=== PATIENT | female | born 1940 | race Caucasian/White ===

== ENCOUNTER 2016-09-13 12:34 | Emergency (ER) | payer MEDICARE, OTHER ==
[2016-09-13 12:39] VITALS: BP 137/69; PULSE 88; RESP 16; TEMP 98.4; O2SAT 97
[2016-09-13] MEDS ORDERED: Sodium Chloride 0.9% 1,000 ML IV STA (13:01)
--- NOTE | 2016-09-13 13:06 | ED PDOC ---
Syncope/Near Syncope/Dizziness Time Seen by Provider: 09/13/16 12:43 Chief Complaint (Nursing): Dizziness/Lightheaded Chief Complaint (Provider): diziness History Per: Patient History/Exam Limitations: no limitations Onset/Duration Of Symptoms: Days (x 1) Additional Complaint(s): Heather Moody is a 76 year old female, with a previous medical history of hypertension and diabetes, who presents to the ED with complaints of dizziness associated with nausea and vomiting ongoing for 1 day. Patient denies any chest pain, palpitation, loss of consciousness or abdominal pain. PMD: none provided Past Medical History Reviewed: Historical Data, Nursing Documentation, Vital Signs Vital Signs: Last Vital Signs Temp 98.4 F 09/13/16 12:35 Pulse 88 09/13/16 12:35 Resp 16 09/13/16 12:35 BP 137/69 09/13/16 12:35 Pulse Ox 97 09/13/16 12:35 - Medical History PMH: CAD, Diabetes, HTN - Family History Family History: States: Unknown Family Hx - Immunization History Hx Tetanus Toxoid Vaccination: No Hx Influenza Vaccination: No Hx Pneumococcal Vaccination: No - Home Medications Home Medications: Ambulatory Orders Medication Instructions Recorded Clindamycin [Cleocin] 300 mg PO QID #40 cap 05/21/15 Pseudoephedrine HCl [Sudafed 120 mg PO BID #14 tablet.er 05/21/15 12-Hour] Meclizine [Meclizine*] 25 mg PO Q8 #15 tab 09/13/16 Ondansetron [Zofran] 4 mg PO Q8H #10 tab 09/13/16 - Allergies Allergies/Adverse Reactions: Allergies Allergy/AdvReac Type Severity Reaction Status Date / Time Penicillins Allergy RASH Verified 05/21/15 11:48 Review of Systems ROS Statement: Except As Marked, All Systems Reviewed And Found Negative Cardiovascular: Negative for: Chest Pain, Palpitations Respiratory: Negative for: Shortness of Breath Gastrointestinal: Positive for: Nausea, Vomiting. Negative for: Abdominal Pain , Diarrhea Neurological: Positive for: Dizziness Physical Exam - Reviewed Nursing Documentation Reviewed: Yes Vital Signs Reviewed: Yes - Physical Exam Appears: Positive for: Well, Non-toxic, No Acute Distress Head Exam: Positive for: ATRAUMATIC, NORMAL INSPECTION, NORMOCEPHALIC Skin: Positive for: Normal Color, Warm, DRY Eye Exam: Positive for: EOMI, Normal appearance, PERRL ENT: Positive for: Normal ENT Inspection Neck: Positive for: Normal, Painless ROM Cardiovascular/Chest: Positive for: Regular Rate, Rhythm Respiratory: Positive for: CNT, Normal Breath Sounds Gastrointestinal/Abdominal: Positive for: Normal Exam, Bowel Sounds, Soft Back: Positive for: Normal Inspection Extremity: Positive for: Normal ROM Neurologic/Psych: Positive for: Alert, waistline joiner overlock II-XII (intact), Oriented. Negative for: Motor/Sensory Deficits - Laboratory Results Result Diagrams: 09/13/16 13:40 09/13/16 13:40 - ECG O2 Sat by Pulse Oximetry: 97 (RA) Pulse Ox Interpretation: Normal Medical Decision Making Medical Decision Making: Initial Plan: * EKG * labs * Antivert 25 mg PO * zofran 4 mg IV * IV NS 1,000 ml at 100 ml/hr * reevaluation Scribe Attestation: Documented by Karen Ryder, acting as a scribe for Hola Green MD. Provider Scribe Attestation: All medical record entries made by the Scribe were at my direction and personally dictated by me. I have reviewed the chart and agree that the record accurately reflects my personal performance of the history, physical exam, medical decision making, and the department course for this patient. I have also personally directed, reviewed, and agree with the discharge instructions and disposition. Disposition - Clinical Impression Clinical Impression: Vertigo - Patient ED Disposition Is Patient to be Admitted: No Counseled Patient/Family Regarding: Studies Performed, Diagnosis, Need For Followup, Rx Given - Disposition Referrals: [facility] [Outside] Disposition: Routine/Home Disposition Time: 14:47 Condition: FAIR Prescriptions: Meclizine [Meclizine*] 25 mg PO Q8 #15 tab Ondansetron [Zofran] 4 mg PO Q8H #10 tab Instructions: Vertigo (ED) Forms: [facility] (Lebanese) Print Language: CYPRIOT
[2016-09-13 13:49] LABS: BASO % 0.4 % (0.0-2.0); EOS # 0.1 K/uL (0.0-0.7); EOS % 0.4 % (0.0-4.0); HEMATOCRIT 39.7 % (34.0-47.0); LYMPH # 2.1 K/uL (1.0-4.3); MEAN CELL VOLUME 82.7 fl (81.0-99.0); MEAN CORPUSCULAR HEMOGLOBIN 25.8 pg (27.0-31.0); MEAN CORPUSCULAR HGB CONC 31.2 g/dL (33.0-37.0); MEAN PLATELET VOLUME 8.8 fl (7.2-11.7); MONO # 0.7 K/uL (0.0-0.8); MONO % 5.9 % (0.0-10.0); NEUT # 9.4 K/uL (1.8-7.0); NEUT % 76.3 % (50.0-75.0); NRBC % 0.3 % (0.0-0.0); RED CELL DISTRIBUTION WIDTH 14.6 % (11.5-14.5); WHITE BLOOD COUNT 12.3 K/uL (4.8-10.8)
[2016-09-13 13:57] LABS: ALB/GLOB RATIO 1.3 (1.0-2.1); ALKALINE PHOSPHATASE 68 U/L (38-126); ALT/SGPT 42 U/L (9-52); AST/SGOT 30 U/L (14-36); BILIRUBIN,TOTAL 1.2 mg/dl (0.2-1.3); BLOOD UREA NITROGEN 26 mg/dl (7-17); CALCIUM 9.7 mg/dL (8.4-10.2); CARBON DIOXIDE 26 mmol/L (22-30); CHLORIDE 104 mmol/L (98-107); GFR AFRICAN-AMERICAN > 60; GLUCOSE,RANDOM 209 mg/dL (65-105); POTASSIUM 4.8 MMOL/L (3.6-5.0); SODIUM 140 mmol/l (132-148); TOTAL PROTEIN 7.8 G/DL (6.3-8.2)
--- NOTE | 2016-09-14 14:56 | CARD ---
APPROVED REPORT EKG Measurement Heart [id number] ID [id number] <Conclusion> Normal sinus rhythm Normal ECG
== END 2016-09-13 15:07 | disposition home or self-care (01) ==
LOC: H.ER 12:34
DX: R42 Dizziness and giddiness (principal); E11.9 Type 2 diabetes mellitus without complications; I10 Essential (primary) hypertension; I25.10 Atherosclerotic heart disease of native coronary artery without angina pectoris; Z88.0 Allergy status to penicillin
CPT/HCPCS: 80053; 82948; 85025; 93005; 96374; 99284; J2405; J7040

== ENCOUNTER 2016-12-05 01:05 | Emergency (ER) | payer MEDICARE, OTHER ==
[2016-12-05 01:15] VITALS: RESP 16; TEMP 98
--- NOTE | 2016-12-05 01:29 | ED PDOC ---
HPI: Back Time Seen by Provider: 12/05/16 01:13 Chief Complaint (Nursing): Back Pain Chief Complaint (Provider): Back pain History Per: Patient Additional Complaint(s): Pt brought to ER via EMS for eval of neck pain., back pain, body aches and dizziness x 3 days Past Medical History Vital Signs: Last Vital Signs Temp 98.0 F 12/05/16 01:13 Pulse 82 12/05/16 01:13 Resp 16 12/05/16 01:13 BP 144/74 12/05/16 01:13 Pulse Ox 97 12/05/16 01:13 - Medical History PMH: CAD, Diabetes, HTN - Family History Family History: States: Unknown Family Hx - Immunization History Hx Tetanus Toxoid Vaccination: No Hx Influenza Vaccination: No Hx Pneumococcal Vaccination: No - Home Medications Home Medications: Ambulatory Orders Medication Instructions Recorded Clindamycin [Cleocin] 300 mg PO QID #40 cap 05/21/15 Pseudoephedrine HCl [Sudafed 120 mg PO BID #14 tablet.er 05/21/15 12-Hour] Meclizine [Meclizine*] 25 mg PO Q8 #15 tab 09/13/16 Ondansetron [Zofran] 4 mg PO Q8H #10 tab 09/13/16 - Allergies Allergies/Adverse Reactions: Allergies Allergy/AdvReac Type Severity Reaction Status Date / Time Penicillins Allergy RASH Verified 05/21/15 11:48 - ECG O2 Sat by Pulse Oximetry: 97 Disposition - Disposition
[2016-12-05 02:22] LABS: ALB/GLOB RATIO 1.3 (1.0-2.1); ALKALINE PHOSPHATASE 70 U/L (38-126); ALT/SGPT 62 U/L (9-52); AST/SGOT 45 U/L (14-36); BILIRUBIN,TOTAL 0.6 mg/dl (0.2-1.3); BLOOD UREA NITROGEN 20 mg/dl (7-17); CALCIUM 9.3 mg/dL (8.4-10.2); CARBON DIOXIDE 25 mmol/L (22-30); CHLORIDE 104 mmol/L (98-107); GFR AFRICAN-AMERICAN > 60; GLUCOSE,RANDOM 113 mg/dL (65-105); POTASSIUM 4.3 MMOL/L (3.6-5.0); SODIUM 140 mmol/l (132-148); TOTAL PROTEIN 7.3 G/DL (6.3-8.2)
--- NOTE | 2016-12-05 02:33 | CT ---
EXAM: CT Head Without Intravenous Contrast CLINICAL HISTORY: 76 years old, female; Pain and signs and symptoms; Dizziness; Headache; Headache not specified; Additional info: Headache, dizzy TECHNIQUE: Axial computed tomography images of the head/brain without intravenous contrast. All CT scans at this facility use one or more dose reduction techniques, viz.: automated exposure control; ma/kV adjustment per patient size (including targeted exams where dose is matched to indication; i.e. head); or iterative reconstruction technique. Coronal and sagittal reformatted images were created and reviewed. COMPARISON: CT - HEAD W/O CONTRAST 2015-05-21 12:08 FINDINGS: Brain: No acute intracranial hemorrhage. Age-appropriate periventricular white matter disease. No edema. Ventricles: Age-appropriate ventriculomegaly. Bones: No acute displaced fracture. Sinuses: Unremarkable as visualized. No acute sinusitis. Mastoid air cells: Unremarkable as visualized. No mastoid effusion. IMPRESSION: No acute intracranial hemorrhage, or suspicious mass effect.
[2016-12-05 02:51] LABS: RBC URINE 1 /hpf (0-3); URINE BACTERIA RARE (<OCC); URINE BILIRUBIN NEGATIVE (NEGATIVE); URINE BLOOD NEGATIVE (NEGATIVE); URINE COLOR STRAW (YELLOW); URINE GLUCOSE (UA) NEG (Normal); URINE KETONE NEGATIVE (NEGATIVE); URINE LEUKOCYTE ESTERASE NEG Leu/uL (Negative); URINE PROTEIN NEGATIVE (NEGATIVE); URINE UROBILINOGEN 0.2-1.0 mg/dL (0.2-1.0); WBC URINE 2 /hpf (0-5)
[2016-12-05 02:52] LABS: THYROID STIMULATING HORMONE 6.91 mIU/ML (0.46-4.68)
[2016-12-05 04:46] VITALS: BP 125/80; PULSE 75; O2SAT 98
[2016-12-05 08:06] LABS: BASO # 0.1 K/uL (0.0-0.2); BASO % 1.1 % (0.0-2.0); EOS # 0.1 K/uL (0.0-0.7); EOS % 1.5 % (0.0-4.0); HEMATOCRIT 36.1 % (34.0-47.0); LYMPH # 2.7 K/uL (1.0-4.3); LYMPH % 27.2 % (20.0-40.0); MEAN CELL VOLUME 81.1 fl (81.0-99.0); MEAN PLATELET VOLUME 8.5 fl (7.2-11.7); MONO # 0.7 K/uL (0.0-0.8); MONO % 6.6 % (0.0-10.0); NEUT # 6.4 K/uL (1.8-7.0); NEUT % 63.6 % (50.0-75.0); RED CELL DISTRIBUTION WIDTH 15.1 % (11.5-14.5); WHITE BLOOD COUNT 10.1 K/uL (4.8-10.8)
--- NOTE | 2016-12-05 12:21 | CARD ---
APPROVED REPORT EKG Measurement Heart [id number] <Conclusion> Normal sinus rhythm Nonspecific T wave abnormality Abnormal ECG
--- NOTE | 2016-12-05 12:59 | RAD ---
HISTORY: med screening COMPARISON: No prior. FINDINGS: LUNGS: No active pulmonary disease. PLEURA: No significant pleural effusion identified, no pneumothorax apparent. CARDIOVASCULAR: Normal. OSSEOUS STRUCTURES: No significant abnormalities. VISUALIZED UPPER ABDOMEN: Normal. OTHER FINDINGS: None. IMPRESSION: No active disease.
== END 2016-12-05 05:06 | disposition home or self-care (01) ==
LOC: H.ER 01:05
DX: T78.40XA Allergy, unspecified, initial encounter (principal); R42 Dizziness and giddiness
CPT/HCPCS: 70450; 71010; 80053; 81003; 82948; 84443; 84484; 85025; 93005; 96374; 99282; J1885

== ENCOUNTER 2017-04-06 08:29 | Emergency (ER) | payer MEDICARE, OTHER ==
[2017-04-06 08:36] VITALS: RESP 20; TEMP 98.3; O2SAT 96
--- NOTE | 2017-04-06 09:28 | ED PDOC ---
HPI: Eye Injury/Pain Chief Complaint (Provider): Bilateral Eye burning History Per: Patient History/Exam Limitations: no limitations Onset/Duration Of Symptoms: Other (4 months) Current Symptoms Are (Timing): Still Present Quality: Burning Associated Symptoms: Itching, Discharge From Eye Additional Complaint(s): 76 yo ,f, PMHx/o DM, HTN, B/L cataracts surgery(last 6 months ago) , Thyroid CA presents c/o b/l eyes burning "sand sensation" started 4 months ago, onset over right eye first and 1 week later left eye, associated with itching, clear eye discharge, mild photophobia and occs pain. She denies today blurry vision, vision loss, eye pain, eye trauma, headache, dizziness, weakness, numbness, chest pain , SOB,palpitation, fever, n,v,d, abd pain, polyuria, polydipsia, polyphagia. She reports was seen by her Ophtalmology 4 months ago and she was prescribed Lubricant eye drops, that she has been using w/o improvement of symptoms. PMD: Jj Jules <Josey Ji - Last Filed: 04/06/17 10:36> <Sriram Rivas - Last Filed: 04/09/17 23:40> Time Seen by Provider: 04/06/17 08:59 Supervising Attending Note - Supervising Attending Note The Documented history was done by the: Physician Hand I Thermal Cutter The documented physical exam was done by the: Physician Hand I Thermal Cutter The documented procedures were done by the: Physician Hand I Thermal Cutter - Attestation: I have personally seen and examined this patient.: Yes I have fully participated in the care of the patient.: Yes I have reviewed all pertinent clinical information, including history, physical exam and plan: Yes - Notes: Notes:: eye itching <Sriram Rivas - Last Filed: 04/09/17 23:40> Past Medical History Vital Signs: Last Vital Signs Temp 98.3 F 04/06/17 08:35 Pulse 91 H 04/06/17 08:35 Resp 20 04/06/17 08:35 BP 171/60 H 04/06/17 08:35 Pulse Ox 96 04/06/17 08:35 - Medical History PMH: CAD, Diabetes, HTN - Family History Family History: States: Unknown Family Hx - Immunization History Hx Tetanus Toxoid Vaccination: No Hx Influenza Vaccination: No Hx Pneumococcal Vaccination: No <Josey Ji - Last Filed: 04/06/17 10:36> Vital Signs: Last Vital Signs Temp 98.3 F 04/06/17 08:35 Pulse 88 04/06/17 12:15 Resp 20 04/06/17 08:35 BP 150/68 04/06/17 12:15 Pulse Ox 96 04/06/17 10:36 <Sriram Rivas - Last Filed: 04/09/17 23:40> - Home Medications Home Medications: Ambulatory Orders Medication Instructions Recorded Meclizine [Meclizine*] 25 mg PO Q6 #30 tab 12/05/16 Polymyxin/Trimethoprim Sulfate 2 drop BOTHEYES Q6H 7 Days bottle 04/06/17 [Polytrim Ophth Soln] - Allergies Allergies/Adverse Reactions: Allergies Allergy/AdvReac Type Severity Reaction Status Date / Time Penicillins Allergy RASH Verified 05/21/15 11:48 Review of Systems Eyes: Positive for: Conjunctivae Inflammation. Negative for: Pain, Vision Change ENT: Negative for: Ear Pain Cardiovascular: Negative for: Chest Pain Respiratory: Negative for: Cough Gastrointestinal: Negative for: Nausea, Vomiting, Abdominal Pain <Josey Ji - Last Filed: 04/06/17 10:36> Physical Exam - Physical Exam Appears: Positive for: No Acute Distress Head Exam: Positive for: ATRAUMATIC, NORMOCEPHALIC Skin: Positive for: Normal Color Eye Exam: Positive for: EOMI, PERRL, Conjunctival injection (mild b/l conjunctival injection), Other (visual acuity b/l normal, fundoscopy normal ). Negative for: Nystagmus, Periorbital swelling, Periorbital tenderness, Scleral icterus Neck: Positive for: Normal Cardiovascular/Chest: Positive for: Regular Rate, Rhythm. Negative for: Murmur Respiratory: Positive for: Normal Breath Sounds. Negative for: Crackles, Rales , Rhonchi Gastrointestinal/Abdominal: Positive for: Bowel Sounds, Soft. Negative for: Tenderness, Guarding, Rebound Back: Positive for: Normal Inspection Extremity: Positive for: Normal ROM. Negative for: Pedal Edema <Josey Ji - Last Filed: 04/06/17 10:36> - Physical Exam Eye Exam: Positive for: EOMI, PERRL <Sriram Rivas - Last Filed: 04/09/17 23:40> - ECG O2 Sat by Pulse Oximetry: 96 <Josey Ji - Last Filed: 04/06/17 10:36> Medical Decision Making Medical Decision Makin:20 AM Initial impression Acute Conjunctivitis Right corneal laceration Diferential Acute uveitis, corneal foreign body, Glaucoma Plan Flourescein test done. right eye small corneal laceration Visual acuity R: 25/20 L: 25/20 B//L 20/20 Polytrimeye drop -f/u With Supercalender Operator Helper. Patient has appt for April -f/ PMD Dr Jj Jules <Josey Ji - Last Filed: 04/06/17 10:36> Disposition - Disposition Disposition Time: 10:35 <Josey Ji - Last Filed: 04/06/17 10:36> <Sriram Rivas - Last Filed: 04/09/17 23:40> - Clinical Impression Clinical Impression: Corneal abrasion - Disposition Referrals: Fernandez Woods MD [Staff Provider] - 04/07/17 Condition: STABLE Additional Instructions: Return if not better in 3 days. Prescriptions: Polymyxin/Trimethoprim Sulfate [Polytrim Ophth Soln] 2 drop BOTHEYES Q6H 7 Days bottle Instructions: Corneal Abrasion Forms: [facility] (Anguillan) Print Language: YAKUT
[2017-04-06] MEDS ORDERED: Fluorescein 1 mg Ophthalmic Strip ONE (10:04)
[2017-04-06 12:27] VITALS: BP 150/68; PULSE 88
== END 2017-04-06 10:40 | disposition home or self-care (01) ==
LOC: H.ER 08:29
DX: H10.30 Unspecified acute conjunctivitis, unspecified eye (principal)